=== PATIENT | female | born 1945 | race Caucasian/White ===

== ENCOUNTER 2016-11-13 12:03 | Day surgery (SDC) | payer MEDICARE, OTHER ==
[~2016-11-13] VITALS: Ht 153.7 cm; Wt 107.0 kg
[~2016-11-13 12:03] MED LIST: APRESOLINE25 MG PO; ASPIRIN81 MG PO; CORDARONE200 MG PO; EFFEXOR XR75 MG PO; ELIQUIS5 MG PO; FLECAINIDE ACET50 MG PO; HYDROCHLOROTH12.5 M1 PO; KLOR-CON M1010 MEQ PO; LASIX20 MG PO; LIPITOR80 MG PO; MULTIPLE VITAM1 EACH PO; NORVASC10 MG PO; PERCOCET 325-51 TAB PO; PLAVIX75 MG PO; REMERON15 MG PO; TOPROL XL50 M1 PO; VALTREX1000 MG PO; XANAX0.5 MG PO
[2017-02-14] MEDS ORDERED: REMERON15 MG PO (10:30)
[2017-02-14] MEDS ORDERED: AMIODARONE HCL200 MG PO (10:30)
[2017-02-14] MEDS ORDERED: TOPROL XL25 MG PO (10:31)
[2017-02-19] MEDS ORDERED: ALBUTEROL0.63 MG/3 INH (09:35)
[2017-02-19] MEDS ORDERED: LASIX80 MG PO (09:39)
[2017-02-19] MEDS ORDERED: LASIX40 MG PO (09:40)
[2017-02-19] MEDS ORDERED: DOCUSATE SODIU100 MG PO (09:43)
[2017-02-19] MEDS ORDERED: XANAX0.5 MG PO (09:45)
[2017-03-30] MEDS ORDERED: TOPROL XL50 MG PO (15:40)
[2017-03-30] MEDS ORDERED: FERROUS SULFAT325 M1 PO (15:41)
[2017-03-30] MEDS ORDERED: DUONEB 3.0-0.5 M3 ML INH (15:42)
[2017-03-30] MEDS ORDERED: SYMBICORT 160-4.6 GM INH (15:43)
[2017-03-30] MEDS ORDERED: PROVENTIL2.5 MG/3 M INH (15:45)
[2017-05-04] MEDS ORDERED: SYMBICORT 160-4.6 GM INH (11:22)
[2017-05-17] MEDS ORDERED: PROTONIX40 MG PO (22:35)
[2017-05-17] MEDS ORDERED: DEMADEX20 MG PO (22:36)
== END 2016-11-13 15:40 | disposition short-term general hospital (02) ==
LOC: SURGOP 12:03
PROC: 08RK3JZ Replacement of Left Lens with Synthetic Substitute, Percutaneous Approach (ICD-10-PCS; principal; 2016-11-13)
DX: H26.9 Unspecified cataract (principal); I48.91 Unspecified atrial fibrillation; I25.10 Atherosclerotic heart disease of native coronary artery without angina pectoris; M54.16 Radiculopathy, lumbar region; G89.29 Other chronic pain; I50.9 Heart failure, unspecified; M79.7 Fibromyalgia; E78.5 Hyperlipidemia, unspecified; J44.9 Chronic obstructive pulmonary disease, unspecified; I11.0 Hypertensive heart disease with heart failure; F17.210 Nicotine dependence, cigarettes, uncomplicated; M19.90 Unspecified osteoarthritis, unspecified site; Z96.1 Presence of intraocular lens; Z86.73 Personal history of transient ischemic attack (TIA), and cerebral infarction without residual deficits; Z86.718 Personal history of other venous thrombosis and embolism; Z88.8 Allergy status to other drugs, medicaments and biological substances; Z79.891 Long term (current) use of opiate analgesic; Z79.899 Other long term (current) drug therapy; Z85.3 Personal history of malignant neoplasm of breast; Z85.89 Personal history of malignant neoplasm of other organs and systems; Z85.42 Personal history of malignant neoplasm of other parts of uterus; Z86.69 Personal history of other diseases of the nervous system and sense organs; Z90.49 Acquired absence of other specified parts of digestive tract; Z90.710 Acquired absence of both cervix and uterus; Z98.51 Tubal ligation status; Z95.5 Presence of coronary angioplasty implant and graft; Z96.652 Presence of left artificial knee joint
CPT/HCPCS: J0171; J3473; J3490; V2630

== ENCOUNTER → 2016-11-23 | Outpatient (CLI) | payer MEDICARE, OTHER ==
[~2016-11-23] MED LIST changes: +ALBUTEROL0.63 MG/3 INH; +AMIODARONE HCL200 MG PO; +DEMADEX20 MG PO; +DOCUSATE SODIU100 MG PO; +DUONEB 3.0-0.5 M3 ML INH; +FERROUS SULFAT325 M1 PO; +LASIX40 MG PO; +LASIX80 MG PO; +PROTONIX40 MG PO; +PROVENTIL2.5 MG/3 M INH; +SYMBICORT 160-4.6 GM INH; +TOPROL XL25 MG PO; +TOPROL XL50 MG PO
== END | disposition short-term general hospital (02) ==
LOC: CLCARD 09:38
DX: I25.10 Atherosclerotic heart disease of native coronary artery without angina pectoris (principal); E78.5 Hyperlipidemia, unspecified; I11.0 Hypertensive heart disease with heart failure; I50.32 Chronic diastolic (congestive) heart failure; E66.9 Obesity, unspecified; Z79.899 Other long term (current) drug therapy

== ENCOUNTER 2016-12-11 10:21 | Day surgery (SDC) | payer MEDICARE, OTHER ==
[~2016-12-11 10:21] MED LIST changes: -ALBUTEROL0.63 MG/3 INH; -AMIODARONE HCL200 MG PO; -DEMADEX20 MG PO; -DOCUSATE SODIU100 MG PO; -DUONEB 3.0-0.5 M3 ML INH; -FERROUS SULFAT325 M1 PO; -LASIX40 MG PO; -LASIX80 MG PO; -PROTONIX40 MG PO; -PROVENTIL2.5 MG/3 M INH; -SYMBICORT 160-4.6 GM INH; -TOPROL XL25 MG PO; -TOPROL XL50 MG PO
[2017-02-14] MEDS ORDERED: REMERON15 MG PO (10:30)
[2017-02-14] MEDS ORDERED: AMIODARONE HCL200 MG PO (10:30)
[2017-02-14] MEDS ORDERED: TOPROL XL25 MG PO (10:31)
[2017-02-19] MEDS ORDERED: ALBUTEROL0.63 MG/3 INH (09:35)
[2017-02-19] MEDS ORDERED: LASIX80 MG PO (09:39)
[2017-02-19] MEDS ORDERED: LASIX40 MG PO (09:40)
[2017-02-19] MEDS ORDERED: DOCUSATE SODIU100 MG PO (09:43)
[2017-02-19] MEDS ORDERED: XANAX0.5 MG PO (09:45)
[2017-03-30] MEDS ORDERED: TOPROL XL50 MG PO (15:40)
[2017-03-30] MEDS ORDERED: FERROUS SULFAT325 M1 PO (15:41)
[2017-03-30] MEDS ORDERED: DUONEB 3.0-0.5 M3 ML INH (15:42)
[2017-03-30] MEDS ORDERED: SYMBICORT 160-4.6 GM INH (15:43)
[2017-03-30] MEDS ORDERED: PROVENTIL2.5 MG/3 M INH (15:45)
[2017-05-04] MEDS ORDERED: SYMBICORT 160-4.6 GM INH (11:22)
[2017-05-17] MEDS ORDERED: PROTONIX40 MG PO (22:35)
[2017-05-17] MEDS ORDERED: DEMADEX20 MG PO (22:36)
== END 2016-12-11 14:33 | disposition short-term general hospital (02) ==
LOC: SURGOP 10:21
PROC: 08RJ3JZ Replacement of Right Lens with Synthetic Substitute, Percutaneous Approach (ICD-10-PCS; principal; 2016-12-11)
DX: Z96.1 Presence of intraocular lens (principal); H26.9 Unspecified cataract; I10 Essential (primary) hypertension; I25.10 Atherosclerotic heart disease of native coronary artery without angina pectoris; I50.9 Heart failure, unspecified; E78.9 Disorder of lipoprotein metabolism, unspecified; F41.9 Anxiety disorder, unspecified; J44.9 Chronic obstructive pulmonary disease, unspecified; E66.9 Obesity, unspecified; F17.210 Nicotine dependence, cigarettes, uncomplicated; Z88.8 Allergy status to other drugs, medicaments and biological substances; Z79.891 Long term (current) use of opiate analgesic; Z79.899 Other long term (current) drug therapy; Z90.49 Acquired absence of other specified parts of digestive tract; Z90.10 Acquired absence of unspecified breast and nipple; Z90.710 Acquired absence of both cervix and uterus; Z98.890 Other specified postprocedural states
CPT/HCPCS: J0171; J3473; V2632

== ENCOUNTER 2017-02-23 14:20 | Emergency (ER) | payer MEDICARE, OTHER ==
[~2017-02-23] VITALS: Ht 167.6 cm; Wt 110.2 kg
[~2017-02-23 14:20] MED LIST changes: +ALBUTEROL0.63 MG/3 INH; +AMIODARONE HCL200 MG PO; +DOCUSATE SODIU100 MG PO; +LASIX40 MG PO; +LASIX80 MG PO; +TOPROL XL25 MG PO
[2017-03-30] MEDS ORDERED: TOPROL XL50 MG PO (15:40)
[2017-03-30] MEDS ORDERED: FERROUS SULFAT325 M1 PO (15:41)
[2017-03-30] MEDS ORDERED: DUONEB 3.0-0.5 M3 ML INH (15:42)
[2017-03-30] MEDS ORDERED: SYMBICORT 160-4.6 GM INH (15:43)
[2017-03-30] MEDS ORDERED: PROVENTIL2.5 MG/3 M INH (15:45)
[2017-05-04] MEDS ORDERED: SYMBICORT 160-4.6 GM INH (11:22)
[2017-05-17] MEDS ORDERED: PROTONIX40 MG PO (22:35)
[2017-05-17] MEDS ORDERED: DEMADEX20 MG PO (22:36)
== END 2017-02-23 18:55 | disposition short-term general hospital (02) ==
LOC: ER 14:20
DX: E86.0 Dehydration (principal); N28.9 Disorder of kidney and ureter, unspecified; R33.9 Retention of urine, unspecified; F41.9 Anxiety disorder, unspecified; I48.91 Unspecified atrial fibrillation; I11.0 Hypertensive heart disease with heart failure; I50.9 Heart failure, unspecified; I25.10 Atherosclerotic heart disease of native coronary artery without angina pectoris; Z79.01 Long term (current) use of anticoagulants; Z79.899 Other long term (current) drug therapy; Z90.49 Acquired absence of other specified parts of digestive tract; Z90.710 Acquired absence of both cervix and uterus; Z98.51 Tubal ligation status; Z87.891 Personal history of nicotine dependence; Z96.652 Presence of left artificial knee joint; Z88.8 Allergy status to other drugs, medicaments and biological substances; Z88.5 Allergy status to narcotic agent

== ENCOUNTER 2017-02-25 08:52 | Emergency (ER) | payer MEDICARE, OTHER ==
[2017-03-30] MEDS ORDERED: TOPROL XL50 MG PO (15:40)
[2017-03-30] MEDS ORDERED: FERROUS SULFAT325 M1 PO (15:41)
[2017-03-30] MEDS ORDERED: DUONEB 3.0-0.5 M3 ML INH (15:42)
[2017-03-30] MEDS ORDERED: SYMBICORT 160-4.6 GM INH (15:43)
[2017-03-30] MEDS ORDERED: PROVENTIL2.5 MG/3 M INH (15:45)
[2017-05-04] MEDS ORDERED: SYMBICORT 160-4.6 GM INH (11:22)
[2017-05-17] MEDS ORDERED: PROTONIX40 MG PO (22:35)
[2017-05-17] MEDS ORDERED: DEMADEX20 MG PO (22:36)
== END 2017-02-25 11:50 | disposition short-term general hospital (02) ==
LOC: ER 08:52
DX: R06.02 Shortness of breath (principal); R91.8 Other nonspecific abnormal finding of lung field; J18.9 Pneumonia, unspecified organism; I13.0 Hypertensive heart and chronic kidney disease with heart failure and stage 1 through stage 4 chronic kidney disease, or unspecified chronic kidney disease; I50.9 Heart failure, unspecified; N18.9 Chronic kidney disease, unspecified; I48.91 Unspecified atrial fibrillation; I25.10 Atherosclerotic heart disease of native coronary artery without angina pectoris; F41.9 Anxiety disorder, unspecified; Z86.718 Personal history of other venous thrombosis and embolism; E78.5 Hyperlipidemia, unspecified; F32.9 Major depressive disorder, single episode, unspecified; E66.9 Obesity, unspecified; Z85.3 Personal history of malignant neoplasm of breast; Z85.42 Personal history of malignant neoplasm of other parts of uterus; M19.90 Unspecified osteoarthritis, unspecified site; G56.00 Carpal tunnel syndrome, unspecified upper limb; Z90.49 Acquired absence of other specified parts of digestive tract; Z90.710 Acquired absence of both cervix and uterus; Z98.51 Tubal ligation status; Z90.11 Acquired absence of right breast and nipple; Z95.2 Presence of prosthetic heart valve; Z79.899 Other long term (current) drug therapy; Z88.6 Allergy status to analgesic agent; Z88.5 Allergy status to narcotic agent; Z88.8 Allergy status to other drugs, medicaments and biological substances; Z87.891 Personal history of nicotine dependence
CPT/HCPCS: J0330; J1940; J2250; J2405; J3010